=== PATIENT | female | born 1960 | race Caucasian/White ===

== ENCOUNTER → 2025-08-24 | Outpatient (CLI) | payer OTHER, SELFPAY ==
--- NOTE | 2025-08-24 12:23 | CT_ITS ---
PROCEDURE: LIMITED CHEST CT CARDIAC ONLY 08/24/2025 REASON FOR EXAM: CHEST PAIN TECHNIQUE: Procedure Code: [id number] Modality: CT Procedure: LIMITED CHEST CT CARDIAC ONLY One or more dose reduction techniques were used (e.g., Automated exposure control, adjustment of the mA and/or kV according to patient size, use of iterative reconstruction technique). RADIATION DOSE SUMMARY: DLP: 3214.19 mGycm COMPARISON: None. CT/Limited Chest CT Cardiac Only IMPRESSION: Of the posterolateral right upper lobe, abutting the major fissure, is seen a p roximally 11 x 9 mm spiculated appearing nodule. This is centered on axial image 15 of 88. Cannot exclude the presence of MALIG LESLEY. Comparison to prior imaging to establish chronicity would be helpful. Alternatively, PET-CT evaluation may be considere d. Mild aortic calcification is seen. No pleural effusion or pneumothorax is seen in visualized areas. No adenopathy is noted. The visualized upper abdomen demonstrates no significant abnormality. Reading Location: [place] [id number]
[2025-08-24 13:09] VITALS: BP 117/78; PULSE 70; RESP 18; O2SAT 96; BMI 41.1
[2025-08-24 13:15] VITALS: PULSE 64
[2025-08-24] MEDS: Nitroglycerin SL (ED/IMG/CATH) 0.4 MG TABLET SL (13:15)
[2025-08-24 13:28] VITALS: BP 115/61; PULSE 66; RESP 16; O2SAT 94
--- NOTE | 2025-08-25 07:38 | CCTA.WCONT ---
CCTA w/Cont Coronary Arteries Date of Study:: 08/24/25 Chest pain Coronary Calcium Scoring: High-resolution Computed Tomographic imaging of the chest was performed on [08/24/2025], with particular attention paid to the coronary arteries. Intravenous contrast agent was administered per protocol and images reconstructed and displayed. LEFT MAIN CORONARY ARTERY: Arises from the left main coronary artery with no angiographically significant stenosis present [] LEFT ANTERIOR DESCENDING CORONARY ARTERY: Left anterior descending artery with mild focal proximal calcification but no angiographically significant present stenosis. 1st and 2nd diagonal vessels are noted. [] LEFT CIRCUMFLEX CORONARY ARTERY: Nondominant circumflex artery vessel with mild focal calcification but no angiographically significant stenosis present [] RIGHT CORONARY ARTERY: Dominant right coronary artery with no angiographically significant stenosis present. [] THORACIC AORTA: [] PULMONARY ARTERY: [] LEFT ATRIUM/APPENDAGE: [] MITRAL VALVE: [] AORTIC VALVE: [] LEFT VENTRICLE: [] CORONARY CALCIUM SCORE: 7 [] Findings Coronary Artery Left Main (LM): 0 Left Anterior Descending (LAD): 3.19 Left Circumflex (LCX): 3.90 Right Coronary Artery (RCA): 0 Total Agatston Score: 7.09 Percentile Rankin-75 Calcium Scoring Interpretation: Different methods to categorize the overall amount of coronary plaque. Overall amount CAC SIS Visual of coronary plaque P1 Mild -100 <2 1-2 vessels with mild amount of plaque P2 Moderate 101-300 3-4 1-2 vessels with moderate amount, 3 vessels with mild amount of plaque P3 Severe 301-999 5-7 3 vessels with moderate amount, 1 vessel with severe amount of plaque P4 Extensive >1000 >8 2-3 vessels with severe amount of plaque Calcium Score: Mild: 1-2 vessels w/mild amount of plaque Conclusion: CT angiogram with mild focal calcification but no angiographically significant stenosis present.
== END | disposition home or self-care (01) ==
LOC: CT 12:21
PROVIDERS: PCP Family Medicine; Referring Provider Internal Medicine Cardiovascular Disease; Visit Provider Internal Medicine Cardiovascular Disease
DX: R07.89 Other chest pain (principal)
CPT/HCPCS: 75571; 75574; 76380